=== PATIENT | male | born 1975 | race Caucasian/White ===

== ENCOUNTER 2019-06-04 17:45 | Observation (INO) | payer OTHER ==
[2019-06-04] MEDS ORDERED: IBUPROFEN 600 MG TAB PO STA (18:15)
[2019-06-04] MEDS ORDERED: VANCOMYCIN IV PER PHARMACY 1 EACH MISC MISCELLANE PRN (18:22)
[2019-06-04] MEDS ORDERED: PIPERACILLIN-TAZOBACTAM 3.375 GM in SODIUM CHLORIDE 0.9% 100 ML IVPB STA (18:22)
[2019-06-04] MEDS: SODIUM CHLORIDE 0.9% 500 ML 500 ML IV SCH (18:28)
[2019-06-04] MEDS ORDERED: VANCOMYCIN 2,500 MG in SODIUM CHLORIDE 0.9% 500 ML 500 ML IVPB ONE (18:30)
[2019-06-04] MEDS ORDERED: VANCOMYCIN 2,250 MG in SODIUM CHLORIDE 0.9% 500 ML 500 ML IVPB ONE (18:39)
[2019-06-04 18:42] LABS: Basophils % (A) 0 %; Eosinophils # (A) 0.1 k/uL (0-0.7); Eosinophils % (A) 0 %; HCT 50.6 % (39.0-53.0); HGB 16.6 gm/dL (13.0-17.5); Lymphocytes # (A) 0.7 k/uL (1.0-4.8); Lymphocytes % (A) 6 %; MCH 30.3 pg (25.0-35.0); MCHC 32.8 g/dL (31.0-37.0); MCV 92.2 fL (80.0-100.0); Mean Platelet Volume 6.6; Monocytes # (A) 0.6 k/uL (0-1.0); Monocytes % (A) 5 %; Neutrophils # (A) 10.7 k/uL (1.3-7.7); Neutrophils % (A) 87 %; Platelet Count 255 k/uL (150-450); RBC 5.48 m/uL (4.30-5.90); RDW 11.9 % (11.5-15.5); WBC 12.3 k/uL (3.8-10.6)
[2019-06-04] MEDS ORDERED: SODIUM CHLORIDE 0.9% 500 ML 500 ML IV ONE (18:45)
--- NOTE | 2019-06-04 19:07 | ED ---
General Adult HPI - General Chief complaint: Skin/Abscess/Foreign Body Stated complaint: cellulitis Time Seen by Provider: 06/04/19 18:00 Source: patient, RN notes reviewed, old records reviewed Mode of arrival: ambulatory Limitations: no limitations - History of Present Illness Initial comments: 44-year-old male patient no pertinent past history dementia ED for potential infection of his neck. Patient reports that for the last 6 months hes been having a seborrheic dermatitis like syndrome of his scalp. Reports that he believes she has had some minor skin infections and pustules which have resolved on their own over this timeframe. Ports that approximately 5 days ago he developed a bump on his posterior skull region. Patient reports that he did attempt to pop it. Patient ports that since then he is not having redness and swelling in his posterior neck and up to his posterior mastoid regions. Reports that he has been feeling feverish last 4 days. Reports that he has had nausea without emesis. Denies any other complaints. Denies any Previous antibiotics. Was sent over from urgent care. Systemic: Pt denies fatigue, fever/chills, rash. Pt denies weakness, night sweats, weight loss. Neuro: Pt denies headache, visual disturbances, syncope or pre-syncope. HEENT: Pt denies ocular discharge or irritation, otalgia, rhinorrhea, pharyng itis or notable lymphadenopathy. Cardiopulmonary: Pt denies chest pain, SOB, heart palpitations, dyspnea on exertion. Abdominal/GI: Pt denies abdominal pain, n/v/d. : Pt denies dysuria, burning w/ urination, frequency/urgency. Denies new onset urinary or bowel incontinence. MSK: Pt denies myalgia, loss of strength or function in extremities. Neuro: Pt denies new onset weakness, paresthesias. - Related Data Allergies Allergy/AdvReac Type Severity Reaction Status Date / Time No Known Allergies Allergy Verified 06/04/19 17:49 Review of Systems ROS Statement: Those systems with pertinent positive or pertinent negative responses have been documented in the HPI. ROS Other: All systems not noted in ROS Statement are negative. Past Medical History Past Medical History: No Reported History History of Any Multi-Drug Resistant Organisms: None Reported Additional Past Surgical History / Comment(s): cyst removal Past Psychological History: No Psychological Hx Reported Smoking Status: Never smoker Past Alcohol Use History: None Reported Past Drug Use History: None Reported General Exam - General Exam Comments Initial Comments: Constitutional: NAD, AOX3, Pt has pleasant affect. HEENT: NC/AT, trachea midline, neck supple, no lymphadenopathy. Posterior pharynx non erythematous, without exudates. External ears appear normal, without discharge. Mucous membranes moist. Eyes PERRLA, EOM intact. There is no scleral icterus. No pallor noted. Cardiopulmonary: RRR, no murmurs, rubs or gallops, no JVD noted. Lungs CTAB in anterior and posterior cantrell. No peripheral edema. Abdominal exam: Abdomen soft and non-distended. Abdomen non-tender to palpation in all 4 quadrants. Bowel sounds active in LLQ. No hepatosplenomegaly. No ecchymosis Neuro: CN II-XII intact. No nuchal rigidity. No raccon eyes, no hoffmann sign, no hemotympanum. No cervical spinal tenderness. MSK: Scabbed lesion approximately 2 x 2 centimeters posterior occipital region. Surrounding erythema and swelling. Bilateral erythema and edema to posterior mastoid region, with mild tenderness to palpation. No posterior calf tenderness bilaterally, homans sign negative bilaterally. Posterior tibialis and radial pulse +2 bilaterally. Sensation intact in upper and lower extremities. Full active ROM in upper and lower extremities, 5/5 stregnth. Limitations: no limitations Course Vital Signs 06/04/19 06/04/19 06/04/19 17:47 18:18 19:20 Temperature 100.7 F H 101.6 F H Pulse Rate 150 H 134 H 116 H Respiratory 20 18 Rate Blood Pressure 123/85 144/91 O2 Sat by Pulse 93 L 97 99 Oximetry Medical Decision Making - Medical Decision Making 44-year-old male patient no pertinent past history dementia ED for potential infection of his neck. Patient reports that for the last 6 months hes been having a seborrheic dermatitis like syndrome of his scalp. Reports that he believes she has had some minor skin infections and pustules which have resolved on their own over this timeframe. Ports that approximately 5 days ago he developed a bump on his posterior skull region. Patient reports that he did attempt to pop it. Patient ports that since then he is not having redness and swelling in his posterior neck and up to his posterior mastoid regions. Reports that he has been feeling feverish last 4 days. Reports that he has had nausea without emesis. Denies any other complaints. Denies any Previous antibiotics. Was sent over from urgent care. Patient was then splinted fever, tachycardia. Physical exam displayed: Scabbed lesion approximately 2 x 2 centimeters posterior occipital region. Surrounding erythema and swelling. Bilateral erythema and edema to posterior mastoid region, with mild tenderness to palpation. Laboratory investigations obtained displayed mild cytosis of 12.3 with left shift. Lactic acid 1.5. Flu negative. Urine negative. EKG displays sinus tachycardia. CT internal auditory canal, soft tissue neck with contrast d isplay any acute findings. Patient was initiated on vancomycin and Zosyn. Patient will be continued on vancomycin however bridged to ceftriaxone. Patient will be admitted for cellulitis, admitting physician Dr. Cabrera. Case discussed and pt seen by Dr. Plummer. - Lab Data Result diagrams: 06/04/19 18:23 06/04/19 18:23 Lab Results 06/04/19 06/04/19 06/04/19 Range/Units 18:23 18:23 18:23 WBC 12.3 H (3.8-10.6) k/uL RBC 5.48 (4.30-5.90) m/uL Hgb 16.6 (13.0-17.5) gm/dL Hct 50.6 (39.0-53.0) % MCV 92.2 (80.0-100.0) fL MCH 30.3 (25.0-35.0) pg MCHC 32.8 (31.0-37.0) g/dL RDW 11.9 (11.5-15.5) % Plt Count 255 (150-450) k/uL Neutrophils % 87 % Lymphocytes % 6 % Monocytes % 5 % Eosinophils % 0 % Basophils % 0 % Neutrophils # 10.7 H (1.3-7.7) k/uL Lymphocytes # 0.7 L (1.0-4.8) k/uL Monocytes # 0.6 (0-1.0) k/uL Eosinophils # 0.1 (0-0.7) k/uL Basophils # 0.0 (0-0.2) k/uL Sodium 137 (137-145) mmol/L Potassium 3.9 (3.5-5.1) mmol/L Chloride 97 L (98-107) mmol/L Carbon Dioxide 28 (22-30) mmol/L Anion Gap 12 mmol/L BUN 15 (9-20) mg/dL Creatinine 0.91 (0.66-1.25) mg/dL Est GFR (CKD-EPI)AfAm >90 (>60 ml/min/1.73 sqM) Est GFR (CKD-EPI)NonAf >90 (>60 ml/min/1.73 sqM) Glucose 119 H (74-99) mg/dL Plasma Lactic Acid Andres 1.5 (0.7-2.0) mmol/L Calcium 9.8 (8.4-10.2) mg/dL Total Bilirubin 0.8 (0.2-1.3) mg/dL AST 31 (17-59) U/L ALT 37 (4-49) U/L Alkaline Phosphatase 107 (38-126) U/L Total Protein 8.9 H (6.3-8.2) g/dL Albumin 4.9 (3.5-5.0) g/dL Urine Color Urine Appearance (Clear) Urine pH (5.0-8.0) Ur Specific [place] (1.001-1.035) Urine Protein (Negative) Urine Glucose (UA) (Negative) Urine Ketones (Negative) Urine Blood (Negative) Urine Nitrite (Negative) Urine Bilirubin (Negative) Urine Urobilinogen (<2.0) mg/dL Ur Leukocyte Esterase (Negative) Influenza Type A RNA (Not Detectd) Influenza Type B (PCR) (Not Detectd) 06/04/19 06/04/19 Range/Units 18:23 20:07 WBC (3.8-10.6) k/uL RBC (4.30-5.90) m/uL Hgb (13.0-17.5) gm/dL Hct (39.0-53.0) % MCV (80.0-100.0) fL MCH (25.0-35.0) pg MCHC (31.0-37.0) g/dL RDW (11.5-15.5) % Plt Count (150-450) k/uL Neutrophils % % Lymphocytes % % Monocytes % % Eosinophils % % Basophils % % Neutrophils # (1.3-7.7) k/uL Lymphocytes # (1.0-4.8) k/uL Monocytes # (0-1.0) k/uL Eosinophils # (0-0.7) k/uL Basophils # (0-0.2) k/uL Sodium (137-145) mmol/L Potassium (3.5-5.1) mmol/L Chloride (98-107) mmol/L Carbon Dioxide (22-30) mmol/L Anion Gap mmol/L BUN (9-20) mg/dL Creatinine (0.66-1.25) mg/dL Est GFR (CKD-EPI)AfAm (>60 ml/min/1.73 sqM) Est GFR (CKD-EPI)NonAf (>60 ml/min/1.73 sqM) Glucose (74-99) mg/dL Plasma Lactic Acid Andres (0.7-2.0) mmol/L Calcium (8.4-10.2) mg/dL Total Bilirubin (0.2-1.3) mg/dL AST (17-59) U/L ALT (4-49) U/L Alkaline Phosphatase (38-126) U/L Total Protein (6.3-8.2) g/dL Albumin (3.5-5.0) g/dL Urine Color Yellow Urine Appearance Clear (Clear) Urine pH 6.5 (5.0-8.0) Ur Specific [place] 1.024 (1.001-1.035) Urine Protein Negative (Negative) Urine Glucose (UA) Negative (Negative) Urine Ketones Negative (Negative) Urine Blood Negative (Negative) Urine Nitrite Negative (Negative) Urine Bilirubin Negative (Negative) Urine Urobilinogen <2.0 (<2.0) mg/dL Ur Leukocyte Esterase Negative (Negative) Influenza Type A RNA Not Detected (Not Detectd) Influenza Type B (PCR) Not Detected (Not Detectd) - EKG Data -: EKG Interpreted by Me (and Dr. Plummer ) EKG Comments: Ventricular 134, QRS 136, QRS 80, QT/QTC 294/49. Sinus tachycardia, otherwise normal EKG. Disposition Clinical Impression: Cellulitis Disposition: ADMITTED IP TO THIS HOSP Condition: Serious Is patient prescribed a controlled substance at d/c from ED?: No Referrals: None,Stated [Primary Care Provider] - 1-2 days
[2019-06-04 19:12] LABS: ALT 37 U/L (4-49); AST 31 U/L (17-59); African American GFR (CKD) >90 (>60 ml/min/1.73 sqM); Albumin 4.9 g/dL (3.5-5.0); Alkaline Phosphatase 107 U/L (38-126); Anion Gap 12 mmol/L; Blood Urea Nitrogen 15 mg/dL (9-20); Calcium 9.8 mg/dL (8.4-10.2); Carbon Dioxide 28 mmol/L (22-30); Chloride 97 mmol/L (98-107); Glucose 119 mg/dL (74-99); Non-African American GFR(CKD) >90 (>60 ml/min/1.73 sqM); Potassium 3.9 mmol/L (3.5-5.1); Sodium 137 mmol/L (137-145); Total Bilirubin 0.8 mg/dL (0.2-1.3); Total Protein 8.9 g/dL (6.3-8.2)
--- NOTE | 2019-06-04 20:14 | CT ---
EXAMINATION TYPE: CT iac w con, CT soft tissue neck w con DATE OF EXAM: 06/04/2019 COMPARISON: NONE HISTORY: cellulitis mastoid ischemia tenderness CT DLP: 195.2 (accession [id number]), 641.7 (accession [id number]) mGycm. Automated Exposure Control for Dose Reduction was Utilized. TECHNIQUE: CT scan of internal auditory canal and neck are both performed with IV contrast, thin cut axial images are obtained, coronal reformatted images are also reviewed. Neck images have coronal an d sagittal reformatted images. FINDINGS: IAC: The external auditory canals are patent bilaterally. Mastoid air cells show no evidence of abnormal opacification bilaterally. The middle ear ossicles are symmetric and unremarkable. There is no evid ence of suspicious surrounding soft tissue density to suggest cholesteatoma. The scutum is preserved bilaterally. The cochlea and the semicircular canals are symmetric and unremarkable. Vestibular aq ueduct and internal carotid canal appear unremarkable. Poor enhancement of the carotid vessels, naman ent likely had delayed imaging after CT neck study. Temporomandibular joints are maintained bilaterally. Visualized paranasal sinuses are grossly clear. Visualized portion brain parenchyma is felt within normal limits. NECK: Airway: No gross abnormality seen. Parotid/submandibular glands: No gross abnormality seen. Carotid/Vascular Structures: No suspicious abnormality. Osseous Structures: Loss of normal cervical curvature. Other: No suspicious fluid collection are greater than 1 cm neck adenopathy. IMPRESSION: No acute findings identified in the neck or mastoids.
[2019-06-04 20:16] LABS: Appearance,Urine Clear (Clear); Bilirubin,Urine Negative (Negative); Blood,Urine Negative (Negative); Color,Urine Yellow; Glucose,Urine (UA) Negative (Negative); Ketones,Urine Negative (Negative); Leukocyte Esterase,Urine Negative (Negative); Nitrite,Urine Negative (Negative); PH, Urine 6.5 (5.0-8.0); Protein,Urine Negative (Negative); Specific Gravity,Urine 1.024 (1.001-1.035); Urobilinogen,Urine <2.0 mg/dL (<2.0)
[2019-06-04] MEDS ORDERED: NALOXONE 0.4 MG/ML 1 ML VIAL IV PRN (20:24)
[2019-06-04] MEDS ORDERED: ACETAMINOPHEN TAB 325 MG TAB PO PRN (20:24)
[2019-06-04] MEDS: SODIUM CHLORIDE 0.9% 1,000 ML IV SCH (20:53)
[2019-06-05] MEDS ORDERED: HYDROcodone/APAP 5-325MG 1 EACH TAB PO PRN (00:22)
[2019-06-05] MEDS ORDERED: ALPRAZolam 0.25 MG TAB PO PRN (00:22)
[2019-06-05] MEDS ORDERED: TEMAZEPAM 15 MG CAP PO PRN (00:22)
[2019-06-05] MEDS ORDERED: HYDROmorphone 0.5 MG/0.5 ML SYRINGE IVP PRN (00:23)
[2019-06-05] MEDS: IBUPROFEN 400 MG TAB PO PRN ×2 (05:06→18:00)
--- NOTE | 2019-06-05 06:40 | HP ---
HISTORY AND PHYSICAL DATE OF SERVICE: 06/04/2019. CHIEF COMPLAINT: Cellulitis and abscess of the posterior part of the neck. HISTORY OF PRESENT ILLNESS: This 44-year-old gentleman with a past medical history of no significant illness except cyst removal from the tail bone in 1999, not being followed by primary physician in the outpatient setting is noted to have some boil in the nape of the neck just around the hairline. The patient apparently was picking it with the thumb and it got worse and because of increasing pain and swelling. The patient came to [facility] and admitted for further evaluation and treatment. There is no history any fever, rigors. There is no history of headache, loss of consciousness or seizures. On admission, patient was found to be tachycardic and had features of possible early sepsis. Influenza negative. PAST MEDICAL HISTORY: No significant illness except cyst removal. MEDICATIONS: Medications are none. ALLERGIES: None. FAMILY HISTORY: No history of heart disease or strokes in the family. SOCIAL HISTORY: No history of smoking. No history of alcohol intake. REVIEW OF SYSTEMS: ENT: No diminished hearing or diminished vision. CARDIOVASCULAR SYSTEM: No angina. RESPIRATORY SYSTEM: No cough. GI: No nausea, vomiting. : No dysuria. NERVOUS SYSTEM: No numbness or weakness. ALLERGY/IMMUNOLOGY: No asthma or hay fever. MUSCULOSKELETAL: As mentioned earlier. HEMATOLOGY/ONCOLOGY: No history of anemia. ENDOCRINE: No history of diabetes or hypothyroidism. CONSTITUTIONAL: As mentioned earlier. DERMATOLOGY: As mentioned earlier. RHEUMATOLOGY: Negative. PSYCHIATRY: Negative. PHYSICAL EXAMINATION: Patient is alert and oriented x3. Pulse is 113, blood pressure 132/89, respiration 16, temperature is 98.5, T-max 101.6, pulse ox 95% on room air. HEENT: Conjunctivae normal. NECK: No jugular venous distention. CARDIOVASCULAR: S1, S2 muffled. RESPIRATORY: Breath sounds diminished at the bases. No rhonchi, no crackles. ABDOMEN: Soft, nontender. No mass palpable. LEGS: No edema, no swelling. NERVOUS SYSTEM: Higher functions as mentioned. Moves all 4 limbs. No focal motor or sensory deficits. SKIN: Significant erythema, tenderness and as well as induration in the posterior part of the neck with some erythema, which has spread around the back of the neck. LYMPHATICS: No lymphadenopathy of the neck, axillae or groin. JOINTS: No active deforming arthropathy. LABS: WBC 12.3, sodium 137, potassium 3.9. Other labs are noted. ASSESSMENT: 1. Acute cellulitis with possibly early abscess with early sepsis, present on admission. 2. Increased WBC. 3. Increased random blood sugar. 4. Obesity with body mass index of 38.4. 5. History of cyst removal from the tailbone in 1999. RECOMMENDATIONS AND DISCUSSION: This 44-year-old gentleman who presented with multiple complex medical issues, we will monitor the patient closely. Continue the current medications. Continue symptomatic treatment. Broad-spectrum IV antibiotics. Cultures. Infectious disease evaluation. Surgical evaluation. Guarded prognosis. DVT prophylaxis. Guarded prognosis because of multiple complex medical issues. Further recommendations to follow Also recommend the patient to follow up with primary physician closely also. MMODL / IJN: [id number] / MTDD
[2019-06-05] MEDS: SODIUM CHLORIDE 0.9% 1,000 ML IV SCH ×2 (06:59→12:56)
[2019-06-05] MEDS: VANCOMYCIN 2,250 MG in SODIUM CHLORIDE 0.9% 500 ML 500 ML IVPB SCH ×2 (06:59→18:01)
[2019-06-05] MEDS: HEPARIN SODIUM,PORCINE 5,000 UNIT/ML 1 ML VIAL SQ SCH ×2 (06:59→21:22)
[2019-06-05 07:14] LABS: Basophils % (A) 0 %; Eosinophils # (A) 0.1 k/uL (0-0.7); Eosinophils % (A) 1 %; HCT 40.2 % (39.0-53.0); Lymphocytes % (A) 10 %; MCH 30.8 pg (25.0-35.0); MCHC 33.5 g/dL (31.0-37.0); Mean Platelet Volume 6.6; Monocytes # (A) 0.5 k/uL (0-1.0); Monocytes % (A) 5 %; Neutrophils # (A) 7.8 k/uL (1.3-7.7); Neutrophils % (A) 81 %; Platelet Count 226 k/uL (150-450); RBC 4.37 m/uL (4.30-5.90); WBC 9.7 k/uL (3.8-10.6)
[2019-06-05 07:18] LABS: ALT 25 U/L (4-49); AST 24 U/L (17-59); African American GFR (CKD) >90 (>60 ml/min/1.73 sqM); Albumin 3.5 g/dL (3.5-5.0); Alkaline Phosphatase 79 U/L (38-126); Anion Gap 7 mmol/L; Blood Urea Nitrogen 11 mg/dL (9-20); Calcium 8.5 mg/dL (8.4-10.2); Carbon Dioxide 25 mmol/L (22-30); Chloride 105 mmol/L (98-107); Glucose 107 mg/dL (74-99); Non-African American GFR(CKD) >90 (>60 ml/min/1.73 sqM); Potassium 4.5 mmol/L (3.5-5.1); Sodium 137 mmol/L (137-145); Total Bilirubin 0.6 mg/dL (0.2-1.3); Total Protein 6.6 g/dL (6.3-8.2)
[2019-06-05 07:23] LABS: HGB 13.5 gm/dL (13.0-17.5)
--- NOTE | 2019-06-05 11:25 | P.GSCN ---
History of Present Illness Consult date: 06/05/19 Reason for Consult: neck cellulitis Requesting physician: Madie Cabrera History of present illness: CHIEF COMPLAINT: neck cellulitis HISTORY OF PRESENT ILLNESS: 44-year-old male admitted to the hospital with neck cellulitis. Patient examined at the bedside. Patient reports he had an ingrown hair on the back lower aspect of his neck that he picked at. He states the area came to a head and he popped it. He reports drainage at that time. He states the area was tender but denies any tenderness currently. Denies fever or chills. PAST MEDICAL HISTORY: See list. PAST SURGICAL HISTORY: See list. SOCIAL HISTORY: No illicit drug use. REVIEW OF SYSTEMS: CONSTITUTIONAL: Denies fever or chills. HEENT: Denies blurred vision, vision changes, or eye pain. Denies hemoptysis CARDIOVASCULAR: Denies chest pain or pressure. RESPIRATORY: No shortness of breath. GASTROINTESTINAL: Refer to HPI for pertinent findings HEMATOLOGIC: Denies bleeding disorders. GENITOURINARY: Denies any blood in urine. SKIN: Denies pruitis. Denies rash. Reports ingrown hair recently to the back of his neck PHYSICAL EXAM: VITAL SIGNS: Reviewed. GENERAL: Well-developed in no acute distress. HEENT: No sclera icterus. Extraocular movements grossly intact. Moist buccal mucosa. Head is atraumatic, normocephalic. ABDOMEN: Soft. Nondistended. Nontender. NEUROLOGIC: Alert and oriented. Cranial nerves II through XII grossly intact. SKIN: Small area of induration to the posterior scalp.Small areas of scabbing noted. No active drainage. Nontender. LABORATORY DATA: WBC 12.3. Repeat 9.7. IMAGING: CT neck: No acute findings ASSESSMENT: 1. Neck cellulitis PLAN: -Continue antibiotics -No surgical intervention recommended Nurse practitioner note has been reviewed by physician. Signing provider agrees with the documented findings, assessment, and plan of care. Past Medical History Past Medical History: No Reported History History of Any Multi-Drug Resistant Organisms: None Reported Additional Past Surgical History / Comment(s): cyst removal from [facility] 1999 Past Psychological History: No Psychological Hx Reported Smoking Status: Never smoker Past Alcohol Use History: None Reported Past Drug Use History: None Reported - Past Family History Mother History Unknown: Yes Family Medical History: Unable to Obtain Medications and Allergies Home Medications Medication Instructions Recorded Confirmed Type No Known Home Medications 06/05/19 06/05/19 History Allergies Allergy/AdvReac Type Severity Reaction Status Date / Time No Known Allergies Allergy Verified 06/05/19 08:54 Surgical - Exam Vital Signs Temp Pulse Resp BP Pulse Ox 100.7 F H 150 H 20 123/85 93 L 06/04/19 17:47 06/04/19 17:47 06/04/19 17:47 06/04/19 17:47 06/04/19 17:47 Results - Labs 06/05/19 06:43 06/05/19 06:43 Abnormal Lab Results - Last 24 Hours (Table) 06/04/19 06/04/19 06/05/19 Range/Units 18:23 18:23 06:43 WBC 12.3 H (3.8-10.6) k/uL Neutrophils # 10.7 H 7.8 H (1.3-7.7) k/uL Lymphocytes # 0.7 L (1.0-4.8) k/uL Chloride 97 L (98-107) mmol/L Glucose 119 H (74-99) mg/dL Total Protein 8.9 H (6.3-8.2) g/dL 06/05/19 Range/Units 06:43 WBC (3.8-10.6) k/uL Neutrophils # (1.3-7.7) k/uL Lymphocytes # (1.0-4.8) k/uL Chloride (98-107) mmol/L Glucose 107 H (74-99) mg/dL Total Protein (6.3-8.2) g/dL Diabetes panel 06/04/19 06/05/19 Range/Units 18:23 06:43 Sodium 137 137 (137-145) mmol/L Potassium 3.9 4.5 (3.5-5.1) mmol/L Chloride 97 L 105 (98-107) mmol/L Carbon Dioxide 28 25 (22-30) mmol/L BUN 15 11 (9-20) mg/dL Creatinine 0.91 0.78 (0.66-1.25) mg/dL Glucose 119 H 107 H (74-99) mg/dL Calcium 9.8 8.5 (8.4-10.2) mg/dL AST 31 24 (17-59) U/L ALT 37 25 (4-49) U/L Alkaline Phosphatase 107 79 (38-126) U/L Total Protein 8.9 H 6.6 (6.3-8.2) g/dL Albumin 4.9 3.5 (3.5-5.0) g/dL Calcium panel 06/04/19 06/05/19 Range/Units 18:23 06:43 Calcium 9.8 8.5 (8.4-10.2) mg/dL Albumin 4.9 3.5 (3.5-5.0) g/dL Pituitary panel 06/04/19 06/05/19 Range/Units 18:23 06:43 Sodium 137 137 (137-145) mmol/L Potassium 3.9 4.5 (3.5-5.1) mmol/L Chloride 97 L 105 (98-107) mmol/L Carbon Dioxide 28 25 (22-30) mmol/L BUN 15 11 (9-20) mg/dL Creatinine 0.91 0.78 (0.66-1.25) mg/dL Glucose 119 H 107 H (74-99) mg/dL Calcium 9.8 8.5 (8.4-10.2) mg/dL Adrenal panel 06/04/19 06/05/19 Range/Units 18:23 06:43 Sodium 137 137 (137-145) mmol/L Potassium 3.9 4.5 (3.5-5.1) mmol/L Chloride 97 L 105 (98-107) mmol/L Carbon Dioxide 28 25 (22-30) mmol/L BUN 15 11 (9-20) mg/dL Creatinine 0.91 0.78 (0.66-1.25) mg/dL Glucose 119 H 107 H (74-99) mg/dL Calcium 9.8 8.5 (8.4-10.2) mg/dL Total Bilirubin 0.8 0.6 (0.2-1.3) mg/dL AST 31 24 (17-59) U/L ALT 37 25 (4-49) U/L Alkaline Phosphatase 107 79 (38-126) U/L Total Protein 8.9 H 6.6 (6.3-8.2) g/dL Albumin 4.9 3.5 (3.5-5.0) g/dL
--- NOTE | 2019-06-05 19:55 | PN ---
PROGRESS NOTE DATE OF SERVICE: 06/05/2019 This 44-year-old gentleman admitted with significant cellulitis on the nape of the neck is being closely monitored. No chest pain. No palpitations. No fever. Cultures are negative so far. Surgery and Infectious Disease are following the patient closely. PHYSICAL EXAMINATION: Alert and oriented x3. Pulse is 104, blood pressure 113/66, respiration 17, temperature 98.3, pulse ox 99% on room air. HEENT: Conjunctivae normal. NECK: Some cellulitis and erythematous areas, some scab also present in the midline. Tenderness also present. No lymphadenopathy. CARDIOVASCULAR SYSTEM: S1, S2 muffled. RESPIRATORY: Clear to auscultation. ABDOMEN: Soft. NERVOUS SYSTEM: No focal deficit. LABS: WBC 9.6, hemoglobin 13.5. Sodium 137, potassium 4.5. ASSESSMENT: 1. Acute cellulitis with possible early abscess with early sepsis, present on admission. 2. Increased white count. 3. Increased random blood sugar. 4. Obesity with body mass index of 38.5. 5. [facility]. RECOMMENDATIONS AND DISCUSSION: I recommend to continue current medications, continue with the monitoring, symptomatic treatment. Continue with the broad-spectrum IV antibiotics. Follow closely with Surgery and Infectious Disease. Guarded prognosis. Further recommendations to follow. MMODL / IJN: [id number] /
[2019-06-05 20:31] VITALS: RESP 16
--- NOTE | 2019-06-05 23:51 | P.CONS ---
History of Present Illness - Reason for Consult Consult date: 06/05/19 scalp cellulitis Requesting physician: Madie Cabrera - Chief Complaint scalp swelling and redness x 5 days - History of Present Illness Patient is a 44-year-old male presenting to the ER at [facility] last night with chief complaints of pain swelling redness to the posterior neck area patient to have history of supportive dermatitis to the scalp however over the last few days had the patient noticed the area to become more swollen red and slightly tender to touch but denies significant pain to the area the area has been hard and indurated but there is no purulent drainage with the symptom the patient was evaluated by the ER physician on arrival to the ER the patient did have a fever of 101.6 degrees Fahrenheit patient was tachycardic did have a white count of 12.3 patient had did have a CT of the soft tissue of the neck that did not show any drainable abscess patient has been admitted to hospital he was started on Rocephin and vancomycin infectious was consulted for further recommendation about antibiotic therapy Review of Systems Positive point has been mentioned in HPI rest of the systems are negative Past Medical History Past Medical History: No Reported History History of Any Multi-Drug Resistant Organisms: None Reported Additional Past Surgical History / Comment(s): cyst removal from [facility] 1999 Past Psychological History: No Psychological Hx Reported Smoking Status: Never smoker Past Alcohol Use History: None Reported Past Drug Use History: None Reported - Past Family History Mother History Unknown: Yes Family Medical History: Unable to Obtain Medications and Allergies Home Medications Medication Instructions Recorded Confirmed Type No Known Home Medications 06/05/19 06/05/19 History Allergies Allergy/AdvReac Type Severity Reaction Status Date / Time No Known Allergies Allergy Verified 06/05/19 08:54 Physical Exam Vitals: Vital Signs Temp Pulse Pulse Resp BP BP Pulse Ox 06/05/19 07:00 98 F 81 16 147/72 98 06/05/19 01:04 98.6 F 96 15 95/57 95 06/04/19 21:30 113 H 06/04/19 21:09 98.5 F 113 H 16 132/89 95 06/04/19 19:20 101.6 F H 116 H 18 144/91 99 06/04/19 18:18 134 H 97 06/04/19 17:47 100.7 F H 150 H 20 123/85 93 L Intake and Output 06/04/19 06/05/19 06/05/19 22:59 06:59 14:59 Intake Total 550 Balance 550 Intake: Intake, IV Titration 550 Amount Sodium Chloride 0.9% 1, 500 000 ml @ 115 mls/hr IV . Q8H42M [facility] Rx#:[id number] cefTRIAXone 1 gm In 50 Sodium Chloride 0.9% 50 ml @ 100 mls/hr IVPB Q12H [facility] Rx#:[id number] Other: Voiding Method Toilet # Voids 1 2 Weight 124.738 kg GENERAL DESCRIPTION: Middle-aged male lying in bed, no distress. No tachypnea or accessory muscle of respiration use. HEENT: Shows Pallor , no scleral icterus. Oral mucous membrane is dry. NECK: Trachea central, no thyromegaly. Posterior neck area did not has any of induration erythema but no purulent drainage LUNGS: Unlabored breathing. Clear to auscultation anteriorly. No wheeze or crackle. HEART: S1, S2, regular rate and rhythm. ABDOMEN: Soft, no tenderness , guarding or rigidity EXTREMITIES: No edema of feet. SKIN: No rash, no masses palpable. NEUROLOGICAL: The patient is awake, alert, oriented x3, mood and affect normal. Results CBC & Chem 7: 06/05/19 06:43 06/05/19 06:43 Labs: Abnormal Lab Results - Last 24 Hours (Table) 06/04/19 06/04/19 06/05/19 Range/Units 18:23 18:23 06:43 WBC 12.3 H (3.8-10.6) k/uL Neutrophils # 10.7 H 7.8 H (1.3-7.7) k/uL Lymphocytes # 0.7 L (1.0-4.8) k/uL Chloride 97 L (98-107) mmol/L Glucose 119 H (74-99) mg/dL Total Protein 8.9 H (6.3-8.2) g/dL 06/05/19 Range/Units 06:43 WBC (3.8-10.6) k/uL Neutrophils # (1.3-7.7) k/uL Lymphocytes # (1.0-4.8) k/uL Chloride (98-107) mmol/L Glucose 107 H (74-99) mg/dL Total Protein (6.3-8.2) g/dL Assessment and Plan Assessment: 1-patient presented to hospital with sepsis in this patient who did have fever tachycardia elevated white count source is posterior neck cellulitis with some component of folliculitis possible staphylococcal infection with a question of possible MRSA versus MSSA (1) Cellulitis, neck Current Visit: Yes Status: Acute Code(s): L03.221 - CELLULITIS OF NECK SNOMED Code(s): 14344904 (2) Sepsis Current Visit: Yes Status: Acute Code(s): A41.9 - SEPSIS, UNSPECIFIED ORGANISM SNOMED Code(s): 44323684 Plan: 1-RN has been instructed to obtain local cultures in the area started to drain 2-vancomycin pharmacy to dose her with a target trough of 15 while watching her kidney function and Vanco trough closely. We will follow on clinical condition and cultures to further adjust medication if needed Thank you for this consultation we will follow the patient along with you Time with Patient: Greater than 30
[2019-06-06] MEDS: VANCOMYCIN 2,250 MG in SODIUM CHLORIDE 0.9% 500 ML 500 ML IVPB SCH (06:41)
[2019-06-06] MEDS: HEPARIN SODIUM,PORCINE 5,000 UNIT/ML 1 ML VIAL SQ SCH (06:42)
[2019-06-06] MEDS: SODIUM CHLORIDE 0.9% 1,000 ML IV SCH (06:42)
[2019-06-06] MEDS: IBUPROFEN 400 MG TAB PO PRN (06:43)
[2019-06-06 07:34] VITALS: BP 129/82; PULSE 72; TEMP 98.2
[2019-06-06 08:11] LABS: African American GFR (CKD) >90 (>60 ml/min/1.73 sqM); Anion Gap 8 mmol/L; Blood Urea Nitrogen 12 mg/dL (9-20); Calcium 8.9 mg/dL (8.4-10.2); Carbon Dioxide 26 mmol/L (22-30); Chloride 104 mmol/L (98-107); Glucose 102 mg/dL (74-99); Non-African American GFR(CKD) >90 (>60 ml/min/1.73 sqM); Potassium 4.7 mmol/L (3.5-5.1); Sodium 138 mmol/L (137-145)
[2019-06-06 08:25] LABS: Basophils % (A) 1 %; Eosinophils # (A) 0.1 k/uL (0-0.7); Eosinophils % (A) 2 %; HCT 42.9 % (39.0-53.0); HGB 13.7 gm/dL (13.0-17.5); Lymphocytes # (A) 1.3 k/uL (1.0-4.8); Lymphocytes % (A) 17 %; MCH 30.8 pg (25.0-35.0); MCV 96.1 fL (80.0-100.0); Mean Platelet Volume 7.2; Monocytes # (A) 0.8 k/uL (0-1.0); Monocytes % (A) 10 %; Neutrophils # (A) 5.2 k/uL (1.3-7.7); Neutrophils % (A) 67 %; Platelet Count 245 k/uL (150-450); RBC 4.46 m/uL (4.30-5.90); WBC 7.8 k/uL (3.8-10.6)
--- NOTE | 2019-06-06 15:18 | PN ---
PROGRESS NOTE DATE OF SERVICE: 06/06/2019 REASON FOR FOLLOWUP: Posterior neck area cellulitis. INTERVAL HISTORY: The patient is currently afebrile. Patient is feeling much better. The posterior neck and chest pain swelling redness have improved. There is no drainage. Denies any chest pain, shortness of breath abdominal pain no diarrhea. PHYSICAL EXAMINATION: Blood pressure 100/902 with a pulse of 72, temperature 98.2, he is 92% on room air. [id number] is a middle-aged male up in the bed in no distress HEENT examination posterior neck area swelling and redness, induration is much improved. There is no drainage. LUNGS: Unlabored breathing to auscultation anteriorly heart S1, S2. Regular rate and rhythm. LABS: White count 7.8. Blood culture has been. DIAGNOSTIC IMPRESSION AND PLAN: Patient with a posterior neck cellulitis, possible staphylococcal infection impression possible with pneumonia. The patient clinically responding to the vancomycin antibiotic will be switched over to Bactrim DS one twice a day for 10 days with close outpatient followup. . MMODL / IJN: [id number] /
--- NOTE | 2019-06-07 06:54 | DS ---
DISCHARGE SUMMARY DATE OF SERVICE: 06/06/2019 FINAL DIAGNOSES: 1. Acute cellulitis with possibly early abscess with early sepsis, present on admission of the nape of the neck. 2. Increased WBC. 3. Increased random blood sugar. 4. Obesity with body mass index of 38.4. 5. History of cyst removal from the coccyx in 1999. DISCHARGE DISPOSITION: The patient will be discharged in stable condition with guarded prognosis. HISTORY OF PRESENT ILLNESS: This 44-year-old gentleman was admitted with significant cellulitis and possible early abscess and sepsis of the back of the neck. The patient treated with IV antibiotics. Cultures are negative. Dr. Velazquez, Infectious Disease, and Surgery saw the patient. Patient improved significantly. On exam, vitals are stable. CARDIOVASCULAR: S1, S2, muffled. ABDOMEN: Soft. NERVOUS SYSTEM: No focal deficits. DISCHARGE ADVICE: 1. Diet is cardiac. 2. Activity limited until followup. 3. Follow up with Dr. Lee in 2 to 3 days. Medications will be: Bactrim DS 1 p.o. b.i.d. for 2 weeks. MMODL / IJN: [id number] /
== END 2019-06-06 13:18 | disposition home or self-care (01) ==
LOC: EC 17:45 → 4SSUR 20:25
PROVIDERS: ADMIT Hospitalist; ATTEND Hospitalist
DX: L03.221 Cellulitis of neck (principal); A41.9 Sepsis, unspecified organism; L02.12 Furuncle of neck; L73.9 Follicular disorder, unspecified; E66.9 Obesity, unspecified; R73.9 Hyperglycemia, unspecified; Z68.38 Body mass index [BMI] 38.0-38.9, adult; Z98.890 Other specified postprocedural states
CPT/HCPCS: 96366 ×4; 96367 ×2; 96372; 96365; 99285; 36415; 93005; 80053 ×2; 80048; 83605; 85025 ×3; 81003; 87040; 87502; 70481; 70491; G0378 ×3; J2543; J3370 ×3; J1644; J0696 ×2; Q9967